=== PATIENT | male | born 1975 | race Hispanic/Latino ===

== ENCOUNTER 2018-05-21 08:54 | Outpatient (CLI) | payer OTHER ==
--- NOTE | 2018-05-21 11:21 | MRI ---
FMRI Upper Ext Jt Lt WO Con History: Injured left shoulder at work in March. Left shoulder pain ever since Comparison: None. Findings: There aren't edema changes associated with the distal end of the clavicle with irregularity to the cortex of the clavicle this is suggestive of a area of cortical infraction related to trauma. The acromium is normal in appearance. Coracoclavicular ligament is intact. No AC separation is seen. There are edema changes associated with the AC joint. There is a focal partial-thickness tear involving the far anterior aspect of the supraspinatus tendon this measures 5 to 6 mm in size and involves greater than 50% of the thickness of the tendon. Tendin osis of the remainder of the tendon is noted. The infraspinatus tendon is intact. Subscapularis muscle and tendon are normal in appearance. Biceps tendon is normal in appearance. The superior labrum is normal. The inferior glenohumeral ligamentous labral complexes normal. Impression: 1. Edema changes involving the distal end of the clavicle with irregularity to the cortex of the dist al end of the clavicle suggesting a subtle fracture. 2. 5 to 6 mm undersurface tear of the supraspinatus tendon, this involves the far anterior aspect of the tendon and is a non retracted tear but does involve greater than 50% of the thickness in this foc al area. There is mild tendinosis of the remainder of the tendon.
== END 2018-05-21 08:55 | disposition home or self-care (01) ==
LOC: SCSMRI 08:54
PROVIDERS: ATTEND Family Medicine
DX: S49.92XD Unspecified injury of left shoulder and upper arm, subsequent encounter (principal); R60.0 Localized edema; M75.102 Unspecified rotator cuff tear or rupture of left shoulder, not specified as traumatic; M67.922 Unspecified disorder of synovium and tendon, left upper arm

== ENCOUNTER 2018-10-20 12:02 | Outpatient (CLI) | payer OTHER ==
[2018-10-20 13:36] LABS: #Eosinphils 0.3 thou/uL (0.0-0.7); #Lymphocytes 1.7 thou/uL (1.20-3.40); #Monocytes 0.5 thou/uL (0.11-0.59); #Neutrophils 4.3 thou/uL (1.40-6.50); %Basophils 0.6 % (0.0-1.0); %Eosinophils 3.7 % (0.0-10.0); %Monocytes 7.3 % (0.0-10.0); %Neutrophils 63.4 % (42.0-75.0); Hemoglobin 13.9 g/dL (14.0-18.0); Mean Corpuscular HGB CONC 34.6 g/dL (32.0-36.0); Mean Corpuscular Hemoglobin 29.2 pg (27.0-31.0); Mean Corpuscular Volume 84.5 fL (78.0-98.0); Mean Platelet Volume 9.3 fL (7.4-10.4); Platelet Count 176 thou/uL (130-400); RBC Distribution Width 12.5 % (11.5-14.5); Red Blood Cell (RBC) Count 4.74 mill/uL (4.70-6.10); White Blood Cell (WBC) Count 6.7 thou/uL (4.8-10.8)
[2018-10-20 13:56] LABS: Anion Gap 16 mmol/L (10-20); BUN (Urea Nitrogen) 16 mg/dL (8.9-20.6); Calc. Creatinine Clearance 0 mL/min (70-130); Calcium 9.7 mg/dL (7.8-10.44); Carbon Dioxide 23 mmol/L (22-29); Chloride 100 mmol/L (98-107); Estimated GFR-MDRD 49; Glucose 333 mg/dL (70-105); Potassium 4.3 mmol/L (3.5-5.1); Sodium 135 mmol/L (136-145)
--- NOTE | 2018-10-21 17:25 | EKG ---
Test Reason : Blood Pressure : / mmHG Vent. Rate : 062 BPM Atrial Rate : 062 BPM P-R Int : 144 ms QRS Dur : 092 ms QT Int : 408 ms P-R-T Axes : 043 056 259 degrees QTc Int : 414 ms Normal sinus rhythm T wave abnormality, consider inferolateral ischemia Inferior infarct , age undetermined cannot be excluded Abnormal ECG Confirmed by XOCHILT ROCA ([id number]) on 10/21/2018 5:25:18 PM Referred By: SUKHI Confirmed By:XOCHILT ROCA
== END 2018-10-20 12:03 | disposition home or self-care (01) ==
LOC: LABBT 12:02
PROVIDERS: ATTEND Orthopaedic Surgery
DX: Z01.818 Encounter for other preprocedural examination (principal); S42.035A Nondisplaced fracture of lateral end of left clavicle, initial encounter for closed fracture; M75.112 Incomplete rotator cuff tear or rupture of left shoulder, not specified as traumatic
CPT/HCPCS: 80048; 85025; 93005; 93010

== ENCOUNTER 2018-10-21 08:12 | Day surgery (SDC) | payer OTHER ==
[2018-10-20 12:21] VITALS: BMI 31.3
[2018-10-21] MEDS ORDERED: Midazolam HCl 2 mg/2 ml Vial ONE (09:06)
[2018-10-21] MEDS ORDERED: Fentanyl 100 MCG/2 ML VIAL ONE ×2 (09:06→10:50)
[2018-10-21] MEDS ORDERED: traMADol HCl 50 MG TAB PO PRN ×2 (10:04)
[2018-10-21] MEDS ORDERED: Promethazine HCl 25 MG/ML VIAL IM PRN (10:04)
[2018-10-21] MEDS ORDERED: Ropivacaine 0.2% 550 ML 550 ML NERVE BLCK SCH (10:04)
[2018-10-21] MEDS ORDERED: Ondansetron PF 4 MG/2 ML Vial IVP PRN (10:04)
[2018-10-21] MEDS ORDERED: Fentanyl 100 MCG/2 ML VIAL IV PRN (10:04)
[2018-10-21] MEDS ORDERED: Zolpidem Tartrate 5 MG TAB PO PRN (10:04)
[2018-10-21] MEDS ORDERED: HYDROcodone/Acetaminophen 10/325 mg Tablet PO PRN ×2 (10:04)
[2018-10-21] MEDS ORDERED: Bupivacaine/Epinephrine 0.25% 30 ML VIAL ONE (10:47)
[2018-10-21] MEDS ORDERED: Bupivacaine HCl 0.5%/Epinephrine 1:200,000/PF 30 ml Vial ONE (12:21)
[2018-10-21] MEDS ORDERED: Ropivacaine 0.2% HCl/PF (40 MG/20 ML VIAL) ONE (12:21)
[2018-10-21] MEDS ORDERED: Ropivacaine 0.5% HCl/PF (150 MG/30 ML VIAL) ONE (12:21)
[2018-10-21] MEDS ORDERED: Ketorolac Tromethamine 30 MG/ML VIAL ONE (12:42)
[2018-10-21] MEDS ORDERED: Rocuronium Bromide 10 MG/ML (10ML VIAL) ONE (12:42)
[2018-10-21] MEDS ORDERED: PROPOFOL 200 MG/20 ML VIAL ONE (12:42)
[2018-10-21] MEDS ORDERED: Ondansetron PF 4 MG/2 ML Vial ONE (12:42)
[2018-10-21] MEDS ORDERED: Lidocaine 1% PF 5 ML VIAL ONE (12:42)
--- NOTE | 2018-10-21 19:53 | OP ---
DATE OF PROCEDURE: 10/21/2018 PREOPERATIVE DIAGNOSES: 1. Closed nondisplaced fracture of distal clavicle with acromioclavicular joint arthropathy. 2. Partial left rotator cuff tear. POSTOPERATIVE DIAGNOSES: 1. Partial left rotator cuff tear less than 30%. 2. Left shoulder acromioclavicular joint arthropathy plus distal clavicle fracture. 3. Small nondisplaced tear, superior labrum. 4. Biceps sling fraying with intact insertion of portion of the supraspinatus footprint. PROCEDURES PERFORMED: 1. Extensive debridement. 2. Distal clavicle resection. LOAN ANALYST: None. ANESTHESIOLOGIST: Marialuisa. ANESTHESIA: The patient received a general endotracheal intubation with interscalene block. ESTIMATED BLOOD LOSS: 30 mL. TOURNIQUET TIME: None. IMPLANTS: None. ANTIBIOTICS: Ancef. COMPLICATIONS: None. HISTORY OF PRESENT ILLNESS: Mr. Stein is a 43-year-old male who presented to me with shoulder pain from an injury that occurred earlier this year, had failed conservative measures, injections, therapy, NSAIDs, rest. I discussed with him the risks and benefits of arthroscopic evaluation of his left rotator cuff for possible debridement versus repair, distal clavicle resection, decompression, possible biceps tenodesis. The patient understood the risks and benefits of procedure. I would like to proceed. The risks and benefits on site were pain, scar, bleeding, infection, failure of procedure, continued pain despite surgery intervention, infection, loss of life, or limb. The patient understood the risks and benefits of the procedure. He would like to proceed DESCRIPTION OF PROCEDURE: Time-out was performed designating the patient's left upper extremity as the operative site based on site, consents, and markings. Posterior portal was visualized intra-articularly and anterior portal with rotator interval. There was a small fraying of the superior labrum, which was just gently debrided, but there was no peel back or obvious damage to the biceps sling near its insertion, but biceps was slightly frayed, but the insertion of the leading edge of supraspinatus appeared completely intact. The subscap was intact. No articular defects. There was no defect that could be appreciated within the intra- articular within the shoulder within the capsule throughout its course and superior to posterior even near the bare spot, nothing within the pouch. Otherwise, his shoulder was intact. We moved subacromially. There was a fair amount of bursa, which was debrided and debrided off the acromion. I came down and exposed the entire rotator cuff. I probed the rotator cuff from posterior to anterior. I only find a soft spot of the 30% tear could have been, but no tear on either side of cuff. I could not find a hole or wait a fall into the tear, I did not feel like making one would necessarily improve the patient's outcome. Therefore, I just debrided the bursa and I took down a portion of CA ligament to move toward his distal clavicle. I exposed distal clavicle using our anterior portal and used cautery to expose completely debrided and ensured from the anterior view that we had to excise bone, so there was no more apposition or touching. Removed 1 sandy width of bone. Controlled bleeding, washed, and closed with 3-0 nylon. The patient will begin passive range of motion exercises. We will follow up with me in 2 weeks. Job ID: [id number] [facility]
== END 2018-10-21 14:24 | disposition home or self-care (01) ==
LOC: SDC 08:12
PROVIDERS: ATTEND Orthopaedic Surgery
PROC: 0RBK4ZZ Excision of Left Shoulder Joint, Percutaneous Endoscopic Approach (ICD-10-PCS; principal; 2018-10-21)
PROC: 3E0T3BZ Introduction of Anesthetic Agent into Peripheral Nerves and Plexi, Percutaneous Approach (ICD-10-PCS; principal; 2018-10-21)
PROC: 0PBB4ZZ Excision of Left Clavicle, Percutaneous Endoscopic Approach (ICD-10-PCS; principal; 2018-10-21)
DX: M75.112 Incomplete rotator cuff tear or rupture of left shoulder, not specified as traumatic (principal); S42.035A Nondisplaced fracture of lateral end of left clavicle, initial encounter for closed fracture; M19.012 Primary osteoarthritis, left shoulder; S43.492A Other sprain of left shoulder joint, initial encounter; G89.18 Other acute postprocedural pain; I10 Essential (primary) hypertension; K21.9 Gastro-esophageal reflux disease without esophagitis; Z79.4 Long term (current) use of insulin; Z79.899 Other long term (current) drug therapy; Z88.2 Allergy status to sulfonamides
CPT/HCPCS: 36416; A4306; J0670; J0690; J1885; J2001; J2250; J2405; J2704; J2795; J3010

== ENCOUNTER 2019-06-28 09:29 | Outpatient (CLI) | payer OTHER ==
[~2019-06-28 09:29] MED LIST: Magnevist 469MG/ML 20 ML VIAL ONE
[2019-06-28] MEDS ORDERED: EPINEPHrine 1 MG/ML AMP ONE (10:20)
[2019-06-28] MEDS ORDERED: Lidocaine 1% PF 10 ML AMP ONE (10:20)
[2019-06-28] MEDS ORDERED: Gadobenate Dimeglumine 529 MG/1 ML (20ML VIAL) ONE (10:20)
[2019-06-28] MEDS ORDERED: Iopamidol 300 61% 50 ML VIAL FS ONE (10:20)
--- NOTE | 2019-06-28 12:07 | RAD ---
Exam: Left shoulder arthrogram with fluoroscopic guidance HISTORY: Acute left shoulder pain. Previous rotator cuff repair COMPARISON: None FINDINGS: Initial three-view fashion journalist radiograph of the left shoulder demonstrates preservation of the g lenohumeral joint space. No fracture or dislocation. Visualized left ribs and lung parenchyma do not demonstrate any acute abnormality Successful left shoulder arthrogram. A total of 10 cc of the contrast admixture was administered into the left shoulder joint space. TECHNIQUE: Consent obtained reformatory left shoulder arthrogram. Left shoulder was prepped and drape d in a sterile fashion. 1% lidocaine, buffered with sodium bicarbonate was used for local anesthesia. Under fluoroscopic guidance, a 22-gauge spinal needle was advanced into the left shoulder joint space. A total of 10 cc of the contrast mixture was administered into the joint space. Patient tolerated the procedure well. No immediate or postprocedural complications IMPRESSION: Successful left shoulder arthrogram with fluoroscopic guidance
--- NOTE | 2019-06-28 15:15 | MRI ---
MRI OF LEFT SHOULDER WITH INTRA-ARTICULAR CONTRAST: 06/28/19 HISTORY: M25.512 acute pain of left shoulder. COMPARISON: MRI 05/21/18. FINDINGS: BICEPS TENDON: Extra-articular and intra-articular biceps tendon is intact. LABRUM: There is a deep superior sublabral sulcus without a displaced tear. The entire labrum is intact. ROTATOR CUFF: High grade 50-60% bursal surface tear anterior 1 cm fibers supraspinatus tendon. There is no contrast extending to the tear. This is at the footprint with a 5mm gap. There is extension of inflammatory f luid within the subacromial/subdeltoid bursa. There is moderate tendinosis of the supraspinatus tendon with interstitial type delamination. There i s also mild infraspinatus tendinosis. 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 This has progressed from the comparison examination. High grade calcifications of the superior acrom ioclavicular ligament with large effusion within the acromioclavicular joint. Moderate subacromial leo bdeltoid bursa effusion. There is normal glenoid version. No fracture. MUSCLES: No significant muscle atrophy. IMPRESSION: 1. Large sublabral sulcus of the superior labrum without tear. 2. 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 3. High grade 50-60% bursal surface tear anterior 1 cm fibers supraspinatus tendon at the footpr int with extension of inflammatory fluid into the moderate sized subacromial/subdeltoid bursa. 4. Type III acromion with mild narrowing of the subacromial space with subsequent mild bursal leo rface partial tearing of the supraspinatus tendon myotendinous junction. 5. No muscle atrophy. 6. No high grade chondral defect. POS: HOME
== END 2019-06-28 09:30 | disposition home or self-care (01) ==
LOC: RAD 09:29
PROVIDERS: ATTEND Orthopaedic Surgery
DX: M25.512 Pain in left shoulder (principal); M89.512 Osteolysis, left shoulder; M75.102 Unspecified rotator cuff tear or rupture of left shoulder, not specified as traumatic
CPT/HCPCS: 23350; A9577; A9579; J0171; J2001; Q9967